=== PATIENT | male | born 1955 ===

== ENCOUNTER 2022-09-17 07:31 | Day surgery (SDC) | payer OTHER ==
[~2022-09-17] VITALS: Ht 168.9 cm; Wt 73.5 kg
[~2022-09-17 07:31] MED LIST: ACTOS15 MG PO; GLIPIZIDE XL5 MG PO; METFORMIN HCL1000 M2 PO; ZESTRIL10 M1 PO
[2022-09-17] MEDS ORDERED: TRAM1TAB98 PO (08:28)
== END 2022-09-17 10:00 | disposition home or self-care (01) ==
LOC: CIR.AMB 07:31
PROVIDERS: ATTEND Surgery
DX: C20 Malignant neoplasm of rectum (principal); K62.5 Hemorrhage of anus and rectum; K59.09 Other constipation; Z20.822 Contact with and (suspected) exposure to COVID-19; I10 Essential (primary) hypertension; R59.0 Localized enlarged lymph nodes